=== PATIENT | female | born 1990 ===

== ENCOUNTER 2018-06-04 07:23 | Inpatient (IN) ==
[~2018-06-04 07:23] MED LIST: OXYTOCIN/LR 20 UNIT/1,000 ML BAG IV ONE
[2018-06-04] MEDS ORDERED: ONDANSETRON 4 MG/2 ML VIAL IV PRN ×2 (07:42→08:29)
[2018-06-04] MEDS ORDERED: OXYTOCIN/LR 20 UNIT/1,000 ML BAG IV ONE ×2 (07:46→08:29)
[2018-06-04] MEDS ORDERED: LIDOCAINE MPF 1% /EPI 30 ML VIAL MISC INJ ONE (07:48)
[2018-06-04] MEDS ORDERED: BUTORPHANOL 2 MG/ML VIAL IV PRN (07:50)
[2018-06-04] MEDS ORDERED: LACTATED RINGERS 1,000 ML IV SCH (08:00)
[2018-06-04] MEDS ORDERED: LIDOCAINE 1% 50 ML VIAL ONE (08:13)
[2018-06-04 08:21] LABS: Basophils % 0.3 % (0.0-0.8); Hemoglobin 10.7 GM/DL (12.0-16.0); Immature Granulocytes % 0.4 %; Immature Granulocytes Absolute 0.04 #; Lymphocytes # 0.8 10*3/uL (1.4-4.0); Lymphocytes % 8.1 % (21.3-54.2); Mean Corpuscular HGB Conc 32.4 GM/DL (32-36); Mean Corpuscular Hemoglobin 26 PG (27-34); Mean Corpuscular Volume 80.7 FL (87-102); Monocytes # 0.3 10*3/uL (0.11-0.8); Monocytes % 3.4 % (1.7-12.7); Neutrophils # 8.8 10*3/uL (1.4-7.4); Neutrophils % 87.8 % (38.7-73.9); Platelet Count 171 T/CUMM (130-400); Red Blood Count 4.09 MC/CUMM (3.8-5.5); Red Cell Distribution Width 15.8 % (9.3-17.3)
[2018-06-04] MEDS ORDERED: HYDROCORTISONE 2.5% RECTAL CREAM 30 GM TUBE TOP PRN (08:29)
[2018-06-04] MEDS ORDERED: oxyCODONE/ACETAMINOPHEN 5-325 MG TABLET PO PRN (08:29)
[2018-06-04] MEDS ORDERED: ACETAMINOPHEN 325 MG TABLET PO PRN (08:29)
[2018-06-04] MEDS ORDERED: BENZOCAINE 20%/MENTHOL 0.5% SPRAY 56 GM CAN TOP PRN (08:29)
[2018-06-04] MEDS ORDERED: RHO(D) IMMUNE GLOBULIN 300 MCG SYRINGE IM ONE (08:29)
[2018-06-04] MEDS ORDERED: WITCH HAZEL PADS 100/JAR TOP PRN (08:29)
[2018-06-04] MEDS ORDERED: DIPH/TET/ACEL PERT BOOSTER VACCINE 0.5 ML VIAL IM ONE (08:29)
[2018-06-04] MEDS ORDERED: BISACODYL 10 MG SUPP RECTAL PRN (08:29)
[2018-06-04] MEDS ORDERED: MEASLES/MUMPS/RUBELLA VACCINE 0.5 ML VIAL SUBCUT ONE (08:29)
[2018-06-04] MEDS ORDERED: LANOLIN 50% CREAM 0.3 OZ TUBE TOP PRN (08:29)
[2018-06-04] MEDS: oxyCODONE/ACETAMINOPHEN 5-325 MG TABLET PO PRN (10:31)
[2018-06-04] MEDS: IBUPROFEN 800 MG TABLET PO PRN ×2 (10:31→21:18)
[2018-06-04] MEDS: DOCUSATE SODIUM 100 MG CAPSULE PO SCH (21:18)
[2018-06-05 03:20] LABS: Basophils % 0.3 % (0.0-0.8); Eosinophils % 0.4 % (0.00-10.9); Immature Granulocytes % 0.3 %; Immature Granulocytes Absolute 0.03 #; Lymphocytes # 2.6 10*3/uL (1.4-4.0); Lymphocytes % 27.5 % (21.3-54.2); Mean Corpuscular Hemoglobin 26 PG (27-34); Mean Corpuscular Volume 80.4 FL (87-102); Mean Platelet Volume 12.3 FL (9.6-12.0); Monocytes # 0.6 10*3/uL (0.11-0.8); Monocytes % 6.3 % (1.7-12.7); Neutrophils # 6.2 10*3/uL (1.4-7.4); Neutrophils % 65.2 % (38.7-73.9); Platelet Count 191 T/CUMM (130-400); Red Blood Count 3.11 MC/CUMM (3.8-5.5); Red Cell Distribution Width 15.9 % (9.3-17.3); White Blood Count 9.6 T/CUMM (4-12)
[2018-06-05] MEDS: IBUPROFEN 800 MG TABLET PO PRN ×2 (04:38→20:44)
[2018-06-05] MEDS: oxyCODONE/ACETAMINOPHEN 5-325 MG TABLET PO PRN (08:55)
[2018-06-05] MEDS: DOCUSATE SODIUM 100 MG CAPSULE PO SCH ×3 (08:55→20:44)
[2018-06-05] MEDS: FERROUS SULFATE 325 MG TABLET PO SCH (20:44)
[2018-06-06 08:23] VITALS: BP 124/71
[2018-06-06] MEDS: FERROUS SULFATE 325 MG TABLET PO SCH (09:10)
[2018-06-06] MEDS: DOCUSATE SODIUM 100 MG CAPSULE PO SCH (09:10)
[2018-06-06] MEDS: IBUPROFEN 800 MG TABLET PO PRN (09:12)
== END 2018-06-06 15:45 | disposition home or self-care (01) | DRG 560 ==
LOC: N.LDOUT 07:23 → N.LD 07:29 → N.OB 10:21
PROVIDERS: ADMIT Obstetrics & Gynecology; ATTEND Obstetrics & Gynecology

== ENCOUNTER 2020-06-16 17:36 | Inpatient (IN) ==
[2020-06-16] MEDS ORDERED: OXYTOCIN/LR 20 UNIT/1,000 ML BAG IV PRN ×2 (17:57→17:59)
[2020-06-16] MEDS ORDERED: ONDANSETRON 4 MG/2 ML VIAL IV PRN (17:57)
[2020-06-16] MEDS ORDERED: BUTORPHANOL 2 MG/ML VIAL IV PRN (17:57)
[2020-06-16] MEDS ORDERED: BUTORPHANOL 1 MG/ML VIAL IV PRN (17:57)
[2020-06-16] MEDS ORDERED: AMPICILLIN INJ 2,000 MG in SODIUM CHLORIDE 0.9% 100 ML IV ONE (17:59)
[2020-06-16] MEDS ORDERED: LACTATED RINGERS 1,000 ML IV SCH (18:00)
[2020-06-16] MEDS ORDERED: LIDOCAINE 1% 50 ML VIAL ONE (18:01)
[2020-06-16] MEDS ORDERED: BUTORPHANOL 2 MG/ML VIAL ONE (18:01)
[2020-06-16] MEDS ORDERED: miSOPROStoL 200 MCG TABLET ONE (18:02)
[2020-06-16] MEDS ORDERED: METHYLERGONOVINE 0.2 MG/1 ML AMP ONE (18:02)
[2020-06-16] MEDS ORDERED: AMPICILLIN 2,000 MG VIAL ONE (18:03)
[2020-06-16 18:20] LABS: Basophils % 0.2 % (0.0-0.8); Eosinophils % 0.1 % (0.00-10.9); Hematocrit 33.6 VOL% (35.7-47.0); Hemoglobin 10.1 GM/DL (12.0-16.0); Immature Granulocytes % 0.5 %; Immature Granulocytes Absolute 0.05 #; Lymphocytes # 0.8 10*3/uL (1.4-4.0); Lymphocytes % 7.9 % (21.3-54.2); Mean Corpuscular HGB Conc 30.1 GM/DL (32-36); Mean Corpuscular Volume 82.6 FL (87-102); Mean Platelet Volume 10.8 FL (9.6-12.0); Neutrophils % 88.3 % (38.7-73.9); Platelet Count 191 T/CUMM (130-400); Red Blood Count 4.07 MC/CUMM (3.8-5.5); White Blood Count 10.4 T/CUMM (4-12)
[2020-06-16 18:33] LABS: Albumin 2.7 G/DL (3.4-5.0); Bilirubin,Total 0.4 MG/DL (0.2-1.0); Calcium 8.8 MG/DL (8.5-10.1); Total Protein 7.8 G/DL (6.4-8.3); Uric Acid 3.9 MG/DL (2.6-6.0)
[2020-06-16 18:34] LABS: Cord Arterial Blood HCO3 19.6 MMOL/L
[2020-06-16 18:36] LABS: Cord Venous Blood HCO3 19.5 MMOL/L; Cord Venous Blood PCO2 29.6 MMHG; Cord Venous Blood PO2 41.9 MMHG
[2020-06-16] MEDS ORDERED: LANOLIN 50% CREAM 0.3 OZ TUBE TOP PRN (21:57)
[2020-06-16] MEDS ORDERED: OXYTOCIN/LR 20 UNIT/1,000 ML BAG IV ONE (21:57)
[2020-06-16] MEDS ORDERED: BENZOCAINE 20%/MENTHOL 0.5% SPRAY 56 GM CAN TOP PRN (21:57)
[2020-06-16] MEDS ORDERED: BISACODYL 10 MG SUPP RECTAL PRN (21:57)
[2020-06-16] MEDS ORDERED: ACETAMINOPHEN 325 MG TABLET PO PRN (21:57)
[2020-06-16] MEDS ORDERED: WITCH HAZEL PADS 100/JAR TOP PRN (21:57)
[2020-06-16] MEDS ORDERED: MEASLES/MUMPS/RUBELLA VACCINE 0.5 ML VIAL SUBCUT ONE (21:57)
[2020-06-16] MEDS ORDERED: HYDROCORTISONE 2.5% RECTAL CREAM 30 GM TUBE TOP PRN (21:57)
[2020-06-16] MEDS ORDERED: DIPH/TET/ACEL PERT BOOSTER VACCINE 0.5 ML VIAL IM ONE (21:57)
[2020-06-16] MEDS ORDERED: oxyCODONE/ACETAMINOPHEN 5-325 MG TABLET PO PRN (21:57)
[2020-06-16] MEDS ORDERED: RHO(D) IMMUNE GLOBULIN 300 MCG SYRINGE IM ONE (21:57)
[2020-06-16] MEDS: DOCUSATE SODIUM 100 MG CAPSULE PO SCH (22:54)
[2020-06-16] MEDS: IBUPROFEN 800 MG TABLET PO PRN (22:54)
[2020-06-17 06:41] LABS: Basophils % 0.3 % (0.0-0.8); Eosinophils % 0.3 % (0.00-10.9); Immature Granulocytes % 0.5 %; Immature Granulocytes Absolute 0.06 #; Lymphocytes # 2.2 10*3/uL (1.4-4.0); Lymphocytes % 20.1 % (21.3-54.2); Mean Corpuscular Volume 82.4 FL (87-102); Mean Platelet Volume 10.9 FL (9.6-12.0); Monocytes % 7.4 % (1.7-12.7); Neutrophils % 71.4 % (38.7-73.9); Platelet Count 188 T/CUMM (130-400); Red Blood Count 3.64 MC/CUMM (3.8-5.5); White Blood Count 11.1 T/CUMM (4-12)
[2020-06-17] MEDS: IBUPROFEN 800 MG TABLET PO PRN ×2 (09:08→19:46)
[2020-06-17] MEDS: DOCUSATE SODIUM 100 MG CAPSULE PO SCH ×2 (09:08→19:47)
[2020-06-17] MEDS: oxyCODONE/ACETAMINOPHEN 5-325 MG TABLET PO PRN ×2 (12:25→23:58)
[2020-06-17] MEDS: FERROUS SULFATE 325 MG TABLET PO SCH ×2 (12:25→19:47)
[2020-06-18] MEDS: FERROUS SULFATE 325 MG TABLET PO SCH ×2 (00:01→07:22)
[2020-06-18] MEDS: DOCUSATE SODIUM 100 MG CAPSULE PO SCH ×2 (00:01→07:22)
[2020-06-18] MEDS: IBUPROFEN 800 MG TABLET PO PRN (07:22)
[2020-06-18 07:41] VITALS: BP 124/63
== END 2020-06-18 11:10 | disposition home or self-care (01) | DRG 560 ==
LOC: N.LDOUT 17:36 → N.LD 17:39 → N.OB 06-17 12:25
PROVIDERS: ATTEND Obstetrics & Gynecology